=== PATIENT | female | born 1995 | race Caucasian/White ===

== ENCOUNTER 2019-06-07 01:15 | Emergency (ER) | payer OTHER ==
[~2019-06-07] VITALS: Ht 165.1 cm; Wt 106.6 kg
[2019-06-07] MEDS ORDERED: PROVERA5 MG PO (01:26)
[2019-06-07] MEDS ORDERED: NORCO 5-325 TA1 EAC1 PO (01:35)
[2019-06-07] MEDS ORDERED: FLEXERIL PO (01:35)
[2019-06-07] MEDS ORDERED: IBUPROFEN 800800 MG PO (01:36)
[2019-06-07 02:05] VITALS: BP 145/96
== END 2019-06-07 02:05 | disposition home or self-care (01) ==
LOC: M.ERS 01:15
DX: S29.012A Strain of muscle and tendon of back wall of thorax, initial encounter (principal); F17.200 Nicotine dependence, unspecified, uncomplicated; X50.0XXA Overexertion from strenuous movement or load, initial encounter; Y92.89 Other specified places as the place of occurrence of the external cause; Y93.89 Activity, other specified; Y99.8 Other external cause status